=== PATIENT | female | born 1960 | race Caucasian/White ===

== ENCOUNTER → 2024-06-17 10:27 | Outpatient (REF) | payer BC, SELFPAY | LOC: RAD 10:27 | PROVIDERS: ATTENDING PHYSICIAN Advanced Practice Midwife; FAMILY PHYSICIAN Internal Medicine | DX: N95.0 Postmenopausal bleeding (principal); D25.9 Leiomyoma of uterus, unspecified | CPT/HCPCS: 76830; 76856 ==

== ENCOUNTER 2024-08-04 06:29 | Day surgery (SDC) | payer BC, SELFPAY ==
[2024-08-01 10:12] VITALS: BMI 25.9
[2024-08-01 10:33] LABS: % Basophils 0.9 % (0-2); % Eosinophils 4.4 % (0-6); % Immature Granulocytes 0.3 % (0-0.5); % Lymphocytes 15.6 % (20.5-51.1); % Monocytes 5.9 % (1.7-9.3); % Neutrophils 72.9 % (42.2-75.2); Absolute Basophils 0.1 10^3/uL (0-0.2); Absolute Eosinophils 0.3 10^3/uL (0-0.7); Absolute Lymphocytes 1.2 10^3/uL (1.2-3.4); Absolute Monocytes 0.4 10^3/uL (0.1-0.6); Absolute Neutrophils 5.4 10^3/uL (1.4-6.5); Hematocrit 41.3 % (37.0-47.0); Hemoglobin 13.7 g/dL (12.0-16.0); Mean Corp Hgb Conc. 33.2 g/dL (33.0-37.0); Mean Corpuscular Volume 87.5 fL (81.0-99.0); Mean Platelet Volume 9.2 fL (7.4-10.4); Nucleated Red Blood Cells % 0 %; Platelet Count 325 10^3/uL (130-400); Red Blood Cell Count 4.72 10^6/uL (4.20-5.40); Red Cell Dist. Width 13.2 % (11.5-14.5); White Blood Cell Count 7.4 10^3/uL (4.8-10.8)
[2024-08-01 10:44] LABS: INR 0.97; PT 12.7 Sec (11.4-14.6)
[2024-08-01 10:45] LABS: APTT 24.2 Sec (23.4-35.0)
[2024-08-04] VITALS (8 sets, daily range): BP systolic 101–131; BP diastolic 62–75; BMI 25.9
[2024-08-04] MEDS: NORMOSOL-R/PLASMALYTE-A 1000 IV (08:30)
[2024-08-04] MEDS: CYTOTEC 100 MCG VAG (09:25)
[2024-08-04] MEDS: SUBLIMAZE 25 MCG IV ×2 (11:16→11:27)
[2024-08-04] MEDS: TYLENOL 650 MG PO (12:30)
== END 2024-08-04 12:45 | disposition home or self-care (01) ==
LOC: SDS 06:29
PROVIDERS: ATTENDING PHYSICIAN Obstetrics & Gynecology; FAMILY PHYSICIAN Internal Medicine
PROC: 0UDB8ZX Extraction of Endometrium, Via Natural or Artificial Opening Endoscopic, Diagnostic (ICD-10-PCS; 2024-08-04)
DX: N95.0 Postmenopausal bleeding (principal)
CPT/HCPCS: 58558; 88305; 36415; 85025; 85610; 85730; 93005

== ENCOUNTER → 2025-01-31 07:32 | Outpatient (REF) | payer BC, SELFPAY ==
[2025-01-31 09:13] LABS: % Basophils 1.3 % (0-2); % Eosinophils 16.7 % (0-6); % Immature Granulocytes 0.2 % (0-0.5); % Lymphocytes 28.9 % (20.5-51.1); % Neutrophils 45.9 % (42.2-75.2); Absolute Basophils 0.1 10^3/uL (0-0.2); Absolute Lymphocytes 1.8 10^3/uL (1.2-3.4); Absolute Monocytes 0.4 10^3/uL (0.1-0.6); Absolute Neutrophils 2.8 10^3/uL (1.4-6.5); Hematocrit 42.3 % (37.0-47.0); Hemoglobin 13.9 g/dL (12.0-16.0); Mean Corp Hgb Conc. 32.9 g/dL (33.0-37.0); Mean Corpuscular Hgb 29.3 pg (27.0-31.0); Mean Corpuscular Volume 89.1 fL (81.0-99.0); Mean Platelet Volume 9.6 fL (7.4-10.4); Nucleated Red Blood Cells % 0 %; Platelet Count 276 10^3/uL (130-400); Red Blood Cell Count 4.75 10^6/uL (4.20-5.40); Red Cell Dist. Width 13.1 % (11.5-14.5); White Blood Cell Count 6.1 10^3/uL (4.8-10.8)
[2025-01-31 10:38] LABS: ALT (SGPT) 30 U/L (0-35); AST (SGOT) 29 U/L (14-36); Alkaline Phosphatase 61 U/L (38-126); Blood Urea Nitrogen 25 mg/dl (7-17); Calcium 9.6 mg/dl (8.4-10.2); Carbon Dioxide 27 mmol/L (22-30); Chloride 105 mmol/L (98-107); Glucose 84 mg/dl (70-99); Iron 75 ug/dl (37-170); Potassium 4.6 mmol/L (3.5-5.1); Sodium 139 mmol/L (135-145); Total Bilirubin 0.7 mg/dl (0.2-1.3); eGFR > 60.00
[2025-01-31 10:43] LABS: C-Reactive Protein < 5.00 mg/L (0.0-10.00)
[2025-01-31 10:47] LABS: Percent Saturation 19 % (20-50); Total Iron Binding Capacity 376 ug/dl (265-497)
[2025-01-31 11:01] LABS: Vitamin D, 25-OH*** 34.4 ng/mL (30-80)
[2025-01-31 11:18] LABS: Ferritin 54.9 ng/ml (11.1-264.0)
[2025-01-31 11:33] LABS: Vitamin B12 916 pg/ml (239-931)
[2025-02-01 14:32] LABS: Transferrin 297 mg/dL (200-360)
[2025-02-02 13:51] LABS: Quantiferon Mitogen minus NIL 9.94 IU/mL; Quantiferon NIL 0.06 IU/mL; Quantiferon TB Gold Plus Negative (Negative)
== END ==
LOC: REG 07:32
PROVIDERS: ATTENDING PHYSICIAN Internal Medicine Gastroenterology; FAMILY PHYSICIAN Internal Medicine; REFERRING PHYSICIAN Internal Medicine Gastroenterology
DX: K50.812 Crohn's disease of both small and large intestine with intestinal obstruction (principal)
CPT/HCPCS: 36415; 80053; 82306; 82607; 82728; 83540; 83550; 84466; 85025; 86140; 86480

== ENCOUNTER → 2025-06-30 18:06 | Outpatient (REF) | payer BC, SELFPAY | LOC: WDC 18:06 | PROVIDERS: ATTENDING PHYSICIAN Obstetrics & Gynecology; FAMILY PHYSICIAN Internal Medicine | DX: Z12.31 Encounter for screening mammogram for malignant neoplasm of breast (principal) | CPT/HCPCS: 77063; 77067 ==

== ENCOUNTER → 2025-08-17 09:08 | Outpatient (REF) | payer BC, SELFPAY | LOC: RAD 09:08 | PROVIDERS: ATTENDING PHYSICIAN Obstetrics & Gynecology; FAMILY PHYSICIAN Internal Medicine | DX: Z78.0 Asymptomatic menopausal state (principal) | CPT/HCPCS: 77080 ==